=== PATIENT | female | born 1950 | race Caucasian/White ===

== ENCOUNTER → 2017-08-15 | Outpatient (CLI) | payer MEDICARE, OTHER ==
[~2017-08-15] MED LIST: ALEVE PM CAPLE1 EACH PO; ASPIR 8181 MG PO; ATENOLOL-CHLOR1 EACH PO; AUGMENTIN 875875 MG PO; CHLORTHALIDONE25 MG PO; CYCLOBENZAPRINE5 MG PO; DIFLUCAN200 MG PO; FLAGYL500 MG PO; HUMALOG100 UNIT/1 SUBQ; HUMALOG100 UNIT/2 SQ; HYDROCODONE-AP1 EAC6 PO; KEFLEX500 MG PO; LANTUSSOLASTAR SUBQ; LISINOPRIL20 MG PO; LOVAZA1000 MG PO; MACRODANTIN100 MG PO; MAGOX 400400 MG PO; MOBIC15 MG PO; OMEPRAZOLE40 MG PO; PREDNISONE 5 MG5 M1 PO; TENORMIN50 MG PO; TOUJEO SOL300 UNIT/1 SUBQ; ZANAFLEX4 MG PO; ZETIA10 MG PO; ZYLOPRIM300 MG PO
== END ==
LOC: M.RAD 14:48
DX: M51.36 Other intervertebral disc degeneration, lumbar region (principal); M43.17 Spondylolisthesis, lumbosacral region; G89.29 Other chronic pain; I70.0 Atherosclerosis of aorta; Z85.3 Personal history of malignant neoplasm of breast

== ENCOUNTER → 2017-09-23 | Outpatient (CLI) | payer MEDICARE, OTHER | LOC: M.MRI 08:12 | DX: M51.85 Other intervertebral disc disorders, thoracolumbar region (principal); M48.061 Spinal stenosis, lumbar region without neurogenic claudication; M47.896 Other spondylosis, lumbar region; M51.36 Other intervertebral disc degeneration, lumbar region ==

== ENCOUNTER 2018-04-16 12:58 | Emergency (ER) | payer MEDICARE, OTHER ==
[~2018-04-16] VITALS: Ht 160 cm; Wt 95.3 kg
[~2018-04-16 12:58] MED LIST changes: -CHLORTHALIDONE25 MG PO; -MACRODANTIN100 MG PO; -TENORMIN50 MG PO; -ZANAFLEX4 MG PO; -ZETIA10 MG PO
[2018-04-16 14:07] LABS: URINE BILIRUBIN NEGATIVE (Negative); URINE BLOOD NEGATIVE (Negative); URINE CLARITY CLEAR; URINE COLOR YELLOW; URINE GLUCOSE-RANDOM NEGATIVE (Negative); URINE KETONES TRACE (Negative); URINE NITRITE-REFLEX NEGATIVE (Negative); URINE PROTEIN NEGATIVE (Negative); URINE SPECIFIC GRAVITY 1.025 (1.005-1.030)
[2018-04-16 14:08] LABS: URINE LEUKOCYTES-REFLEX 2+ (Negative)
[2018-04-16 14:22] LABS: CASTS None Seen /LPF (None Seen); CRYSTALS None Seen /LPF (None Seen); SQUAMOUS 4-10 Moderate /LPF (0-3); URINE RBC 3-10 Few /HPF (0-2); URINE WBC-REFLEX >25 Many /HPF (0-5)
[2018-04-16 14:27] LABS: ANION GAP 7 mmol/L (7-16); BUN 32 mg/dL (7-18); CALCIUM 9.2 mg/dL (8.5-10.1); CHLORIDE 101 mmol/L (98-107); CO2 31 mmol/L (21-32); CREATININE 0.8 mg/dL (0.6-1.3); GLUCOSE 193 mg/dL (70-99); POTASSIUM 4.3 mmol/L (3.5-5.1); SODIUM 139 mmol/L (136-145)
[2018-04-16 14:29] LABS: HEMATOCRIT 37.1 % (37.0-47.0); HEMOGLOBIN 12.7 gm/dL (12.0-15.0); MCH 28.3 pg (26.0-34.0); MCHC 34.1 g/dL (28.0-37.0); MCV 83.1 fL (80.0-100.0); MPV 9.7 fl. (7.2-11.1); NUCLEATED RBCS 0 /100WBC; PLATELET COUNT* 110 thou/uL (150-400); RBC 4.47 mil/uL (4.20-5.00); RDW-CV 15.7 % (10.5-14.5); WBC 7.9 thou/uL (4.0-11.0)
[2018-04-16 14:38] LABS: ALBUMIN 3.6 g/dL (3.4-5.0); ALKALINE PHOSPHATASE 82 U/L (46-116); NT-PRO BRAIN NAT PEPTIDE 47 pg/mL (<300); SGOT 24 U/L (15-37); SGPT 34 U/L (30-65); TOTAL BILIRUBIN 0.3 mg/dL (<0.1-1.0); TOTAL PROTEIN 7.2 g/dL (6.4-8.2); TROPONIN-I LEVEL <0.06 ng/mL (<0.06)
[2018-04-16 15:33] LABS: ABSOLUTE EOSINOPHILS 0.4 thou/uL (0.0-0.7); ABSOLUTE LYMPHOCYTES 0.8 thou/uL (0.8-5.3); ABSOLUTE MONOCYTES 0.5 thou/uL (0.0-1.2); ABSOLUTE NEUTROPHILS 6.2 thou/uL (1.6-8.1)
[2018-04-16 15:37] LABS: MACROCYTES 1+; POIKILOCYTOSIS Occasional
[2018-04-16 15:46] LABS: LARGE PLATELETS RARE; PLATELET ESTIMATE DECREASED
[2018-04-16 15:47] LABS: CLUMPED PLTS OCCASIONAL
[2018-04-16] MEDS ORDERED: MACRODANTIN100 MG PO (16:01)
[2018-04-16] MEDS ORDERED: ZANAFLEX4 MG PO (16:01)
[2018-04-16 16:32] VITALS: BP 136/47
--- NOTE | 2018-04-17 16:21 | EKG ---
[place] [address] ELECTROCARDIOGRAM REPORT Name: JACINTO MCDANIEL Room: [facility]#: [id number] Admission: 04/16/18 Attend Phys: Discharge: 04/16/18 Date of : 52 Report #: [id number] THIS REPORT FOR: //name// 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 : 1950 Requested By: Tierra Monzon Order Number: [id number] MD: Alejandro Engle Measurements Intervals [place] Rate: 67 P: 8 DC: 213 QRS: -40 QRSD: 111 T: 35 QT: 389 QTc: 411 Interpretive Statements Sinus rhythm Borderline prolonged DC interval Incomplete left bundle branch block Left ventricular hypertrophy Compared to ECG 07/31/2016 16:54:32 Left bundle-branch block now present Electronically Signed On 04-17-2018 16:21:43 CDT by Alejandro Engle [email or web address] <ELECTRONICALLY SIGNED> By: Alejandro Engle MD, [facility] 04/17/18 1621 1426 1426 Alejandro Engle MD, [facility] /EPI
== END 2018-04-16 16:34 | disposition home or self-care (01) ==
LOC: M.ERS 12:58
PROVIDERS: Nurse Practitioner Family
DX: S29.012A Strain of muscle and tendon of back wall of thorax, initial encounter (principal); R07.89 Other chest pain; E86.0 Dehydration; N39.0 Urinary tract infection, site not specified; M19.90 Unspecified osteoarthritis, unspecified site; I10 Essential (primary) hypertension; E11.9 Type 2 diabetes mellitus without complications; M10.9 Gout, unspecified; Z88.1 Allergy status to other antibiotic agents; Z88.8 Allergy status to other drugs, medicaments and biological substances; Z98.890 Other specified postprocedural states; Z87.442 Personal history of urinary calculi; Z90.710 Acquired absence of both cervix and uterus; Z79.4 Long term (current) use of insulin; Z85.3 Personal history of malignant neoplasm of breast; X58.XXXA Exposure to other specified factors, initial encounter; Y93.89 Activity, other specified; Y92.89 Other specified places as the place of occurrence of the external cause; Y99.8 Other external cause status

== ENCOUNTER 2018-06-01 10:38 | Inpatient (IN) | payer MEDICARE, OTHER ==
[~2018-06-01] VITALS: Ht 160 cm; Wt 86.5 kg
[~2018-06-01 10:38] MED LIST changes: +MACRODANTIN100 MG PO; +ZANAFLEX4 MG PO
[2018-06-01 10:50] VITALS: BP 119/55
[2018-06-01 11:14] LABS: HEMATOCRIT 42.3 % (37.0-47.0); HEMOGLOBIN 14.2 gm/dL (12.0-15.0); MCH 28.1 pg (26.0-34.0); MCHC 33.6 g/dL (28.0-37.0); MCV 83.6 fL (80.0-100.0); NUCLEATED RBCS 0 /100WBC; PLATELET COUNT* 130 thou/uL (150-400); RBC 5.06 mil/uL (4.20-5.00); RDW-CV 15.8 % (10.5-14.5); WBC 9.4 thou/uL (4.0-11.0)
[2018-06-01 11:24] LABS: ANION GAP 12 mmol/L (7-16); BUN 34 mg/dL (7-18); CHLORIDE 97 mmol/L (98-107); CO2 22 mmol/L (21-32); CREATININE 1.6 mg/dL (0.6-1.3); GLUCOSE 430 mg/dL (70-99); POTASSIUM 5.1 mmol/L (3.5-5.1); SODIUM 131 mmol/L (136-145)
[2018-06-01 11:35] LABS: ALBUMIN 3.2 g/dL (3.4-5.0); ALKALINE PHOSPHATASE 61 U/L (46-116); APTT 26.5 Seconds (25.0-31.3); INR 1.1; NT-PRO BRAIN NAT PEPTIDE 238 pg/mL (<300); PROTIME 11.1 Seconds (9.20-11.50); SGOT 16 U/L (15-37); SGPT 24 U/L (30-65); TOTAL BILIRUBIN 0.8 mg/dL (<0.1-1.0); TOTAL PROTEIN 7.1 g/dL (6.4-8.2); TROPONIN-I LEVEL <0.06 ng/mL (<0.06)
[2018-06-01 11:43] LABS: ABSOLUTE MONOCYTES 0.1 thou/uL (0.0-1.2); ABSOLUTE NEUTROPHILS 8.3 thou/uL (1.6-8.1); ATYPICAL LYMPHS 1 %
[2018-06-01 11:44] LABS: PLATELET ESTIMATE DECREASED; POLYCHROMASIA 1+; TOXIC GRANULATION 1+
[2018-06-01 13:01] VITALS: BP 120/67
[2018-06-01 13:16] VITALS: BP 98/58
[2018-06-01] MEDS ORDERED: TENORMIN50 MG PO (14:02)
[2018-06-01] MEDS ORDERED: CHLORTHALIDONE25 MG PO (14:03)
[2018-06-01] MEDS ORDERED: ZETIA10 MG PO (14:10)
[2018-06-01 16:00] VITALS: BP 81/62
[2018-06-01 20:00] VITALS: BP 117/50
[2018-06-02] VITALS (12 sets, daily range): BP systolic 79–138; BP diastolic 30–105
[2018-06-02 05:07] LABS: HEMATOCRIT 32.4 % (37.0-47.0); MCH 28.4 pg (26.0-34.0); MCHC 34.4 g/dL (28.0-37.0); MCV 82.6 fL (80.0-100.0); RBC 3.92 mil/uL (4.20-5.00); RDW-CV 15.5 % (10.5-14.5); WBC 5.5 thou/uL (4.0-11.0)
[2018-06-02 05:17] LABS: HEMOGLOBIN 11.1 gm/dL (12.0-15.0)
[2018-06-02 05:48] LABS: ALBUMIN 2.6 g/dL (3.4-5.0); CREATININE 1.1 mg/dL (0.6-1.3); MAGNESIUM 1.4 mg/dL (1.8-2.4); TOTAL BILIRUBIN 0.4 mg/dL (<0.1-1.0); TOTAL PROTEIN 5.3 g/dL (6.4-8.2)
[2018-06-02 05:49] LABS: POTASSIUM 4.1 mmol/L (3.5-5.1)
--- NOTE | 2018-06-02 09:59 | EKG ---
[place] [address] ELECTROCARDIOGRAM REPORT Name: JACINTO MCDANIEL Room: [address] ADM IN .R.#: [id number] Admission: 06/01/18 Attend Phys: Victor Manuel Lyle, Discharge: Date of : 52 Report #: [id number] THIS REPORT FOR: //name// [facility] ED Test Date: 2018-06-01 Test Time: 10:54:05 Pat Name: JACINTO MCDANIEL Department: Room: [facility] Gender: F Pulper: BRITTANY : 1950 Requested By: Imani Raymundo Order Number: [id number] MD: Thierry Lozada Measurements Intervals [place] Rate: 115 P: 35 [place]: 180 QRS: -53 QRSD: 105 T: 80 QT: 323 QTc: 447 Interpretive Statements Sinus tachycardia Consider left atrial enlargement Left anterior fascicular block Abnormal R-wave progression, late transition Borderline ST depression, lateral leads Compared to ECG 04/16/2018 14:26:50 ST (T wave) deviation now present Myocardial infarct finding now present Sinus rhythm no longer present Left ventricular hypertrophy no longer present Electronically Signed On 06-02-2018 9:59:02 CDT by Thierry Lozada [email or web address] <ELECTRONICALLY SIGNED> By: Thierry Lozada MD, FACC 06/02/18 0959 1054 1054 Thierry Lozada MD, [facility] /EPI
[2018-06-02 11:13] LABS: APTT 26.7 Seconds (25.0-31.3); PROTIME 10.7 Seconds (9.20-11.50)
--- NOTE | 2018-06-02 17:03 | 2DMMODE ---
[place] [address] 2 D/M-MODE ECHOCARDIOGRAM Name: JACINTO MCDANIEL Room: [address] IN [facility]#: [id number] Admission: 06/01/18 Attend Phys: Victor Manuel Sanchez Discharge: Date of : 52 Date of Service: 06/02/18 1703 Report #: [id number] THIS REPORT FOR: //name// APPROVED REPORT Study performed: 06/02/2018 14:41:24 EXAM: Comprehensive 2D, Doppler, and color-flow Echocardiogram Patient Location: In-Patient Room #: [facility] Status: routine BSA: 2.04 HR: 74 bpm BP: 104/453 mmHg Rhythm: NSR Other Information Study Quality: Good Indications Abnormal ECG Echo Enhancing Agent Indication: Rule out Shunt Agent(s) / Amount(s) Used: Agitated Saline 10 cc 2D Dimensions IVSd: 12.29 (7-11mm) LVOT Diam: 18.62 (18-24mm) LVDd: 46.79 mm PWd: 11.10 (7-11mm) Ascending Ao: 34.43 (22-36mm) LVDs: 28.23 (25-40mm) Aortic Root: 31.25 mm Volumes Left Atrial Volume (Systole) LA ESV Index: 15.40 mL/m2 Aortic Valve AoV Peak Oleg.: 1.60 m/s AO Peak Gr.: 10.18 mmHg LVOT Max P.37 mmHg AO Mean Gr.: 6.27 mmHg LVOT Mean P.67 mmHg LVOT Max V: 1.16 m/s AO V2 VTI: 29.79 cm LVOT Mean V: 0.75 m/s CRISTHIAN (VTI): 1.99 cm2 LVOT V1 VTI: 21.83 [place] [address] 2 D/M-MODE ECHOCARDIOGRAM Name: JACINTO MCDANIEL Room: [address] IN .R.#: [id number] Admission: 06/01/18 Attend Phys: Victor Manuel Sanchez Discharge: Date of : 52 Date of Service: 06/02/18 1703 Report #: [id number] Mitral Valve E/A Ratio: 0.85 MV Decel. Time: 227.91 ms MV E Max Oleg.: 0.88 m/s MV PHT: 66.09 ms MVA (PHT): 3.33 cm2 TDI E/Lateral E': 11.00 E/Medial E': 11.00 Medial E' Oleg.: 0.08 m/s Lateral E' Oleg.: 0.08 m/s Pulmonary Valve PV Peak Oleg.: 0.97 m/s PV Peak Gr.: 3.78 mmHg Tricuspid Valve RAP Estimate: 5.00 mmHg TR Peak Gr.: 28.40 mmHg RVSP: 33.00 mmHg PA Pressure: 33.00 mmHg Left Ventricle The left ventricle is normal size. There is normal LV segmental wall motion. Moderate concentric left ventricular hypertrophy. Left ventricular systolic function is normal. The left ventricular ejection fraction is within the normal range. LVEF is 60-65%. Grade I - abnormal relaxation pattern. Right Ventricle The right ventricle is normal size. The right ventricular systolic function is normal. Atria Left atrium is mildly dilated. Interatrial septum is intact without evidence of ASD or PFO. The right atrium size is normal. Aortic Valve The aortic valve is normal in structure. No aortic regurgitation is present. There is no aortic valvular stenosis. Mitral Valve The mitral valve is normal in structure. Trace mitral regurgitation. No evidence of mitral valve stenosis. Tricuspid Valve The tricuspid valve is normal in structure. Mild tricuspid regurgitation. [place] [address] 2 D/M-MODE ECHOCARDIOGRAM Name: JACINTO MCDANIEL Room: [address] IN [facility]#: [id number] Admission: 06/01/18 Attend Phys: Victor Manuel Sanchez Discharge: Date of : 52 Date of Service: 06/02/18 1703 Report #: [id number] Pulmonic Valve The pulmonary valve is normal in structure. There is no pulmonic valvular regurgitation. Great Vessels The aortic root is normal in size. IVC is not well visualized. Pericardium There is no pericardial effusion. <Conclusion> LVEF is 60-65%. Moderate concentric left ventricular hypertrophy. There is normal LV segmental wall motion. Left atrium is mildly dilated. There is no aortic valvular stenosis. No aortic regurgitation is present. Trace mitral regurgitation. No evidence of mitral valve stenosis. Mild tricuspid regurgitation. Mild pulmonary hypertension. <ELECTRONICALLY SIGNED> By: Ryland Marrero MD, FACC 06/02/181702 02 02 Ryland Marrero MD, FACC /INF
[2018-06-02 18:17] LABS: URINE BILIRUBIN NEGATIVE (Negative); URINE BLOOD NEGATIVE (Negative); URINE CLARITY CLEAR; URINE COLOR DARK YELLOW; URINE GLUCOSE-RANDOM NEGATIVE (Negative); URINE KETONES NEGATIVE (Negative); URINE LEUKOCYTES TRACE (Negative); URINE NITRITE NEGATIVE (Negative); URINE PROTEIN NEGATIVE (Negative); URINE SPECIFIC GRAVITY >= 1.030 (1.005-1.030); URINE UROBILINOGEN 0.2 E.U./dl (0.2-1.0)
[2018-06-02 18:39] LABS: SQUAMOUS >10 Many /LPF (0-3)
[2018-06-02 18:40] LABS: CRYSTALS None Seen /LPF (None Seen); HYALINE CASTS 4-10 Moderate /LPF (None Seen); MUCUS 0-3 Light strn/LPF (None Seen)
[2018-06-02 18:41] LABS: BACTERIA 1-9 Few /HPF (None Seen); URINE RBC None Seen /HPF (0-2); URINE WBC 6-15 Few /HPF (0-5)
[2018-06-03 04:00] VITALS: BP 120/95
[2018-06-03 05:56] LABS: CHOLESTEROL 144 mg/dL (<200); HDL CHOLESTEROL 30 mg/dL (>40); LDL CHOLESTEROL 71 mg/dL (<100); TC:HDL 4.8 Ratio (Not establshd); TRIGLYCERIDE 215 mg/dL (<150); VLDL 43 mg/dL (<40)
[2018-06-03 06:00] LABS: SERUM ASSESSMENT Clear
[2018-06-03 08:20] VITALS: BP 92/30
[2018-06-03 12:00] VITALS: BP 130/80; BP 94/40
[2018-06-03 16:00] VITALS: BP 133/100
[2018-06-03 20:46] VITALS: BP 102/45
[2018-06-03 21:07] LABS: GLYCOHEMOGLOBIN (HGB A1C) 7.4 % (4.8-5.6)
[2018-06-04] VITALS: BP 99/44
[2018-06-04 04:00] VITALS: BP 104/51
[2018-06-04 08:04] VITALS: BP 126/40
[2018-06-04 11:49] VITALS: BP 117/48
--- NOTE | 2018-06-04 12:35 | CON ---
[address] [address] CONSULTATION Name: VIOLETAJACINTO Room: [address] IN .R.#: [id number] Admission: 06/01/18 Attend Phys: Victor Manuel Lyle, Discharge: Date of : 52 Report #: [id number] THIS REPORT FOR: //name// CC: Victor Manuel Flood DATE OF SERVICE: 06/03/2018 INFECTIOUS DISEASES CONSULTATION ATTENDING PHYSICIAN: Jr Howell DO. REASON FOR EVALUATION: Gastroenteritis complicated by early signs sepsis. HISTORY OF PRESENT ILLNESS: Chart reviewed, patient examined. This is a 68-year-old female with history of breast cancer who developed onset of diarrhea illness latter part of last week. This was complicated by multiple stools per day. She did have accompanying cramping type abdominal pain despite of somatic symptom treatment worsened, became apparent she fell, which she stated was more due to weakness in her legs, was found to be hemodynamically somewhat labile, she was given fluids, mild renal insufficiency and chest x-ray is unrevealing. Stool cultures are pending. She did have a lactic acid peaked at 3.1. She did note some fevers while at home with chills. On questioning, she denies any particular exposure history. She does have diabetes and her blood sugars have been markedly elevated. Empirically started on cefepime, metronidazole. Clinically, she feels much improved over the course of last 24 hours. ALLERGIES: Listed to AZITHROMYCIN and STATINS. CURRENT MEDICATIONS: Include methylprednisolone, cefepime, metronidazole, p.r.n. analgesics, antiemetics, lisinopril, aspirin, atenolol, ezetimibe, tizanidine. 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 SOCIAL HISTORY: Nonsmoker, no ethanol. FAMILY HISTORY: Noncontributory. REVIEW OF SYSTEMS: Denies any significant pulmonary-related complaints. PHYSICAL EXAMINATION: GENERAL: She appears somewhat chronically ill is the acute component, though not overtly toxic. She is alert, cooperative, [place] [address] CONSULTATION Name: JACINTO MCDANIEL Room: [address]#: [id number] Admission: 06/01/18 Attend Phys: Victor Manuel Lyle, Discharge: Date of : 52 Report #: [id number] VITAL SIGNS: Temperature 98.1, pulse 73, respirations 20, blood pressure 92/30. SKIN: Warm, dry, no rashes. HEENT: Unremarkable. NECK: Supple. LUNGS: Generally clear. HEART: Regular. ABDOMEN: Soft. There are no peritoneal signs. GENITOURINARY: Deferred. RECTAL: Deferred. LABORATORY DATA: Sed rate of 60, prealbumin of 13.9. CT of the abdomen and pelvis showed fluid in the colon, possible diarrhea or enteritis. Urinalysis, 6-15 white cells. MRI of the head shows severe chronic small vessel ischemic changes. CT, little shell tribe of [place] showed no evidence of stenosis. Chest x-ray was unremarkable. ASSESSMENT: Gastroenteritis, suspect infectious etiology. We will await results of the stool for enteric pathogens as well as blood culture results. Continue empiric antimicrobials. <ELECTRONICALLY SIGNED> By: Serafin Ibarra MD 06/04/18 1235 0946 [id number] Ibarra MD /nt
--- NOTE | 2018-06-04 15:13 | CON ---
[address] [address] CONSULTATION Name: JACINTO MCDANIEL Room: [address] IN .R.#: [id number] Admission: 06/01/18 Attend Phys: Victor Manuel Lyle, Discharge: Date of : 52 Report #: [id number] THIS REPORT FOR: //name// CC: Victor Manuel Flood DO DATE OF SERVICE: 06/01/2018 HISTORY OF PRESENT ILLNESS: The patient is a 68-year-old white female who I was asked to see in the Emergency Room after she was noted to have an abnormal ECG. The patient denies a previous history of heart disease. She apparently has had no previous cardiac evaluation. She does not exercise on a regular basis. She was doing well until about 3 days ago. She developed loose stools. Yesterday, she started having abdominal cramping and vomiting. She felt weak and had to sit down on the floor. She finally came to the Emergency Room today. She is noted to have an abnormal ECG and I was asked to see her for further evaluation and treatment. She denies any exertional chest tightness, dyspnea on exertion, palpitations, syncope, edema. PAST MEDICAL AND SURGICAL HISTORY: She has had a history of breast cancer with bilateral mastectomy followed by radiation therapy and chemotherapy. She has had cervical spine fusion, tonsillectomy, hypertension, diabetes, hyperlipidemia. MEDICATIONS: Include atenolol, chlorthalidone, lisinopril, insulin. ALLERGIES: SHE COULD NOT TOLERATE STATIN DRUGS IN THE PAST, WHICH MADE HER LEGS WEAK. FAMILY HISTORY: Her brother is Bud, a nurse here at [employer], who has coronary artery disease. SOCIAL HISTORY: She is . She and her live in [place]. 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 No smoking or alcohol abuse. REVIEW OF SYSTEMS: She denied a history of stroke, asthma, peptic ulcer disease, liver disease. She has had kidney stones. No chronic skin condition. She does wear glasses. No psychiatric illness. PHYSICAL EXAMINATION: GENERAL: Revealed a middle-aged female lying in stretcher. She appeared in no acute distress. VITAL SIGNS: Blood pressure 120/60, pulse is 100, temperature is 100.5. HEENT: She is anicteric, conjunctivae pink. Mucous membranes are moist. NECK: Veins do not appear distended. No carotid bruits. [place] [address] CONSULTATION Name: JACINTO MCADNIEL Room: [address]#: [id number] Admission: 06/01/18 Attend Phys: Victor Manuel Lyle, Discharge: Date of : 52 Report #: [id number] CHEST: Clear to auscultation. CARDIAC: Regular rate and rhythm, no murmur. ABDOMEN: Soft. EXTREMITIES: Had no edema. Posterior tibial pulse 2+ bilaterally. SKIN: Cool and dry. NEUROLOGIC: Nonfocal. DIAGNOSTIC DATA: ECG shows sinus tachycardia, left axis, late transition, nonspecific T-wave changes. Workup in the Emergency Room today, she had a chest x-ray done actually last month that shows normal heart size, clear lung olivares. She had lab work today. Sodium 131, potassium 5.1, BUN 34, creatinine 1.6, glucose 430. Liver function studies are normal. Troponin 0.06. BNP 238. White blood cell count 9.4, hemoglobin 14.2. IMPRESSION AND RECOMMENDATIONS: 1. Abnormal ECG. No evidence of acute myocardial infarction, suspect secondary to hypertension. 2. Hypertension. The patient is on a beta nirmal, diuretic and JOHN inhibitor. 3. Diabetes. 4. Hyperlipidemia. The patient cannot tolerate statin drugs. 5. History of breast cancer. 6. Acute kidney injury. <ELECTRONICALLY SIGNED> By: Thierry Lozada MD, FACC 06/04/18 1513 1144 1850Dajojo Lozada MD, FACC /nt
[2018-06-04 16:35] VITALS: BP 107/45
[2018-06-04 20:03] VITALS: BP 138/47
[2018-06-05] VITALS (7 sets, daily range): BP systolic 106–140; BP diastolic 43–56
--- NOTE | 2018-06-06 19:14 | CON ---
[address] [address] CONSULTATION Name: JACINTO MCDANIEL Room: [address] IN M.R.#: [id number] Admission: 06/01/18 Attend Phys: Victor Manuel Lyle, Discharge: 06/05/18 Date of : 52 Report #: [id number] THIS REPORT FOR: //name// CC: Victor Manuel Flood DATE OF SERVICE: 06/02/2018 HISTORY OF PRESENT ILLNESS: This is a 68-year-old female patient who was evaluated by me as a part of stroke protocol. I discussed the patient with the nurses multiple times. I reviewed the patient's records. The history is not completely clear. As I understand from the patient, she woke up this morning and she was having some difficulty with swallowing. She does have some speech difficulty, but according to the patient, some speech difficulty is at her baseline. She indicates she has an inflammatory muscle disease. She does not know the exact diagnosis. 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 That causes her weakness in the lower extremities. That is her baseline. There is some question that some weakness was noticed on the left side. The patient feels back to her baseline, but it is difficult to tell for sure. REVIEW OF SYSTEMS: Indicates that she has a history of scabies. She had a history of inflammatory myopathy, tonsillectomy, ruptured disk repair in 1984, kidney stone, hysterectomy, arthroscopy, bilateral carpal tunnel syndrome, sebaceous cyst of right hip, arthritis, hypertension, urolithiasis, spinal stenosis, diabetes, fibroids, sciatica, gout. She indicated she had MRIs in the past and she was able to tolerate them. She had a history of mastectomy and healed fracture. A 14-point review of system was carried out and this was the patient's relevant 14-point review of system. PAST MEDICAL HISTORY: Negative for any stroke. FAMILY HISTORY: Negative for any early age stroke. SOCIAL HISTORY: She denies the use of alcohol or tobacco. PHYSICAL EXAMINATION: Indicates that the patient is alert and responsive. She is somewhat sleepy. She can be easily awakened. She does not have any dysmorphic features of eyes, ears and face. Her vision and hearing looks adequate. Cranial nerve examination 2-12 looks unremarkable. Strength is diminished in generalized fashion, but not in any particular muscles. Sensations are present. Tone looks symmetrical. No cerebellar sign. I could not look at the patient's fundus. No meningeal sign. No thyroid mass. Her vision and hearing looks adequate. Reflexes are symmetrical. She is moderately [facility] [address] [place] [address] CONSULTATION Name: JACINTO MCDANIEL Hiren Room: [address] IN M.R.#: [id number] Admission: 06/01/18 Attend Phys: Victor Manuel Lyle, Discharge: 06/05/18 Date of : 52 Report #: [id number] built individual. Her pulses are difficult to palpate. Cardiac examination is unremarkable. No respiratory difficulty or rhonchi on either side. Blood pressure is 104/45, it is running low and has gone as much as 80 systolic. The patient has been admitted with GI problems. Pulse is 103, temperature is 97.8. LABORATORY DATA: Indicates a white count of 5.5 and platelet of only 96. She did have a CT scan of the head, which showed no acute changes. IMPRESSION AND PLAN: It is very difficult to form in this patient to see if she had a stroke or something else. Even if she had a stroke, she indicates she woke up with the symptoms. She is also on Lovenox. Because of that, she is not a candidate for any TPA. We will go ahead and do an MRI in this patient and I will go ahead and do an MRA at the same time. That will determine if any other treatment is acutely necessary and what to do for secondary stroke prophylaxis. Thank you very much for this referral and we will follow up the MRI. We also need to increase the blood pressure in the brain to have an adequate perfusion to the brain. Nurses are already contacting Dr. Howell to get some fluid orders. I did ask the nurses to keep her flat when she goes down for an MRI and for a routine. Thank you very much for this referral. We will follow this patient along with you. <ELECTRONICALLY SIGNED> By: Gregorio Conner MD 06/06/18 1914 1153 1507Gregorio Conner MD /nt
== END 2018-06-05 15:10 | disposition home health service (06) | DRG 682 ==
LOC: M.ERS 10:38 → M.TBA-ER 12:00 → M.2W 12:00
PROVIDERS: Internal Medicine; Personal Emergency Response Attendant; ADMIT Family Medicine
DX: N17.0 Acute kidney failure with tubular necrosis (principal); E11.00 Type 2 diabetes mellitus with hyperosmolarity without nonketotic hyperglycemic-hyperosmolar coma (NKHHC); E44.0 Moderate protein-calorie malnutrition; M19.90 Unspecified osteoarthritis, unspecified site; M10.9 Gout, unspecified; E78.5 Hyperlipidemia, unspecified; K52.9 Noninfective gastroenteritis and colitis, unspecified; E11.22 Type 2 diabetes mellitus with diabetic chronic kidney disease; E11.65 Type 2 diabetes mellitus with hyperglycemia; I12.9 Hypertensive chronic kidney disease with stage 1 through stage 4 chronic kidney disease, or unspecified chronic kidney disease; N18.3 Chronic kidney disease, stage 3 (moderate); Z87.442 Personal history of urinary calculi; Z90.710 Acquired absence of both cervix and uterus; Z85.3 Personal history of malignant neoplasm of breast; Z87.81 Personal history of (healed) traumatic fracture; Z90.13 Acquired absence of bilateral breasts and nipples; Z88.1 Allergy status to other antibiotic agents; Z88.8 Allergy status to other drugs, medicaments and biological substances; Z92.21 Personal history of antineoplastic chemotherapy; Z92.3 Personal history of irradiation; Z82.49 Family history of ischemic heart disease and other diseases of the circulatory system; Z79.82 Long term (current) use of aspirin; Z79.899 Other long term (current) drug therapy; Z68.33 Body mass index [BMI] 33.0-33.9, adult

== ENCOUNTER 2018-09-04 21:25 | Emergency (ER) | payer MEDICARE, BC ==
[~2018-09-04] VITALS: Ht 165.1 cm; Wt 98.4 kg
[~2018-09-04 21:25] MED LIST changes: +CHLORTHALIDONE25 MG PO; +TENORMIN50 MG PO; +ZETIA10 MG PO
[2018-09-04] MEDS ORDERED: ZOVIRAX400 MG PO (22:48)
[2018-09-04 22:57] VITALS: BP 119/47
== END 2018-09-04 22:57 | disposition home or self-care (01) ==
LOC: M.ERS 21:25
DX: G51.0 Bell's palsy (principal); I10 Essential (primary) hypertension; M19.90 Unspecified osteoarthritis, unspecified site; M48.00 Spinal stenosis, site unspecified; E11.9 Type 2 diabetes mellitus without complications; M10.9 Gout, unspecified; E78.5 Hyperlipidemia, unspecified; Z88.1 Allergy status to other antibiotic agents; Z88.8 Allergy status to other drugs, medicaments and biological substances; Z90.89 Acquired absence of other organs; Z87.442 Personal history of urinary calculi; Z90.710 Acquired absence of both cervix and uterus; Z85.3 Personal history of malignant neoplasm of breast; Z90.13 Acquired absence of bilateral breasts and nipples; Z79.4 Long term (current) use of insulin

== ENCOUNTER → 2018-12-15 | Outpatient (CLI) | payer MEDICARE, BC ==
[~2018-12-15] MED LIST changes: +ZOVIRAX400 MG PO
== END ==
LOC: M.RAD 11:57
DX: C50.812 Malignant neoplasm of overlapping sites of left female breast (principal); R97.8 Other abnormal tumor markers; M47.814 Spondylosis without myelopathy or radiculopathy, thoracic region; Z88.1 Allergy status to other antibiotic agents

== ENCOUNTER → 2019-09-30 | Outpatient (CLI) | payer MEDICARE, BC ==
[2019-09-30 09:03] LABS: POTASSIUM 4.6 mmol/L (3.5-5.1)
== END ==
LOC: M.LAB 00:16
PROVIDERS: Anesthesiology
DX: E11.9 Type 2 diabetes mellitus without complications (principal); E87.6 Hypokalemia

== ENCOUNTER 2020-01-22 21:05 | Inpatient (IN) | payer MEDICARE, BC ==
[~2020-01-22] VITALS: Ht 160 cm; Wt 96.9 kg
[2020-01-22 21:12] VITALS: BP 154/70
[2020-01-22 21:46] LABS: HEMATOCRIT 38.2 % (37.0-47.0); HEMOGLOBIN 13.1 gm/dL (12.0-15.0); MCH 27.8 pg (26.0-34.0); MCHC 34.4 g/dL (28.0-37.0); MCV 80.9 fL (80.0-100.0); MPV 9.4 fl. (7.2-11.1); RBC 4.72 mil/uL (4.20-5.00); RDW-CV 15.4 % (10.5-14.5); WBC 4.9 thou/uL (4.0-11.0)
[2020-01-22 22:00] LABS: APTT 23.1 Seconds (25.0-31.3); PROTIME 10.4 Seconds (9.20-11.50)
[2020-01-22 22:02] LABS: CALCIUM 9.1 mg/dL (8.5-10.1); CREATININE 1.1 mg/dL (0.6-1.3); POTASSIUM 4.4 mmol/L (3.5-5.1)
[2020-01-22] MEDS ORDERED: CRESTOR5 MG PO (22:06)
[2020-01-22 22:07] LABS: ALBUMIN 3.6 g/dL (3.4-5.0); TOTAL BILIRUBIN 0.8 mg/dL (<0.1-1.0); TOTAL PROTEIN 7.2 g/dL (6.4-8.2)
[2020-01-22] MEDS ORDERED: ARIMIDEX1 MG PO (22:07)
[2020-01-22] MEDS ORDERED: FLEXERIL PO (22:07)
[2020-01-22] MEDS ORDERED: GRALISE300 MG PO (22:08)
[2020-01-22 23:46] LABS: URINE BILIRUBIN NEGATIVE (Negative); URINE BLOOD TRACE (Negative); URINE CLARITY CLEAR; URINE COLOR YELLOW; URINE GLUCOSE-RANDOM 3+ (Negative); URINE KETONES 1+ (Negative); URINE LEUKOCYTES TRACE (Negative); URINE NITRITE POSITIVE (Negative); URINE PROTEIN NEGATIVE (Negative); URINE SPECIFIC GRAVITY 1.015 (1.005-1.030); URINE UROBILINOGEN 0.2 E.U./dl (0.2-1.0)
[2020-01-22 23:56] LABS: BACTERIA >30 Many /HPF (None Seen); CASTS None Seen /LPF (None Seen); CRYSTALS None Seen /LPF (None Seen); MUCUS 4-6 Moderate strn/LPF (None Seen); SQUAMOUS 0-3 Few /LPF (0-3); URINE RBC 3-10 Few /HPF (0-2); URINE WBC >25 Many /HPF (0-5); WBC CLUMPS Few (None Seen)
[2020-01-23 02:03] VITALS: BP 103/46
[2020-01-23 02:45] VITALS: BP 149/62
--- NOTE | 2020-01-23 05:41 | NUR ---
PT ADMITTED TO FLOOR AT 0215. ASSESSMENTS COMPLETED AT BEDSIDE. MEDICATIONS ADMINISTERED PER OCT. C/O CHRONIC PAIN AT A TOLERABLE LEVEL. PT IS A FALL RISK D/T RECENT FALLS. NO OTHER CONCERNS NOTED AT THIS TIME, PT IS CURRENTLY ASLEEP IN BED WITH BED ALARM ON AND CALL LIGHT WITHIN REACH.
[2020-01-23 07:30] VITALS: BP 141/48
--- NOTE | 2020-01-23 09:49 | EKG ---
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 : 1950 Requested By: Philly Jennings Order Number: [id number] MD: Heriberto Garcia Measurements Intervals [place] Rate: 113 P: 55 [place]: 161 QRS: -46 QRSD: 107 T: 66 QT: 325 QTc: 446 Interpretive Statements Sinus tachycardia Incomplete left bundle branch block Probable left ventricular hypertrophy ST elevation, consider inferior injury Compared to ECG 06/01/2018 10:54:05 Left bundle-branch block now present Myocardial infarct finding now present Left anterior fascicular block no longer present ST (T wave) deviation still present Electronically Signed On 01-23-2020 9:48:15 CDT by Heriberto Garcia [email or web address] <ELECTRONICALLY SIGNED> By: Sandy Garcia MD, [facility] 01/23/20947 10 10 Sandy Garcia MD, [facility] /EPI
[2020-01-23 12:02] VITALS: BP 112/58
[2020-01-23 12:45] LABS: CALCIUM 8.4 mg/dL (8.5-10.1); MAGNESIUM 1.4 mg/dL (1.8-2.4); POTASSIUM 3.8 mmol/L (3.5-5.1)
[2020-01-23 17:09] VITALS: BP 113/44
--- NOTE | 2020-01-23 19:44 | NUR ---
RECEVIED REPORT FROM FAUSTINA RN. ASSUMED CARE OF PT AROUND 0730. PT AWAKE, ALERT TO PERSON, PLACE AND SITUATION BUT ALSO CONFUSED AND FORGETFUL. PT MADE M/S STATUS. MEDS PER EMAR. PT COMPLETED MRI THIS SHIFT. UP WITH MODERATE ASSIST TO BEDSIDE COMMODE TO VOID. PT BECAME MORE CONFUSED BY THIS EVENING AND WAS HAVING AUDITORY HALLUCINATIONS. EVENING GABEPENTIN HELD. PT WITH POOR APPETITE. V GO INSULIN PUMP REMOVED AND PLACED ON BEDSIDE TABLE FOR MRI. PT CURRENTLY RESTING IN BED. CALL LIGHT IS WITHIN REACH. HOURLY ROUNDING PERFORMED. FALL PRECAUTIONS IN PLACE.
[2020-01-23 20:20] VITALS: BP 150/56
[2020-01-24] VITALS (16 sets, daily range): BP systolic 92–135; BP diastolic 30–61
[2020-01-24 04:31] LABS: CALCIUM 8.2 mg/dL (8.5-10.1); CREATININE 0.9 mg/dL (0.6-1.3); MAGNESIUM 1.4 mg/dL (1.8-2.4); POTASSIUM 3.7 mmol/L (3.5-5.1)
[2020-01-24 05:38] LABS: GLYCOHEMOGLOBIN (HGB A1C) 11.1 % (4.8-5.6)
--- NOTE | 2020-01-24 06:07 | NUR ---
PATIENT HAS SLEPT WELL THROUGHOUT THE NIGHT. VSS ON RA, ALTHOUGH TEMP WAS ELEVATED AT 101.7 AND TYLENOL WAS GIVEN AND TEMP CAME DOWN TO 98.5. MEDICATIONS GIVEN ORDERED AND PATIENT TAKES WITH PUDDING. PATIENT IS STILL SHOWING SOME CONFUSION WHEN TALKING TO HER. IV IN LEFT FOREARM-SL. FALL PRECAUTIONS IN PLACE AND HOURLY ROUNDS MADE. WILL CONTINUE WITH PLAN OF CARE AND NURSING TO MONITOR.
[2020-01-24 14:04] LABS: BE 0.8 mmol/L (-2 to +3); PCO2 39.6 mmHg (35.0-45.0); PO2 100.8 mmHg (75.0-100.0); pH 7.422 (7.340-7.450)
[2020-01-24 14:29] LABS: HEMATOCRIT 32.4 % (37.0-47.0); MCH 27.7 pg (26.0-34.0); MCHC 34.3 g/dL (28.0-37.0); MCV 80.8 fL (80.0-100.0); MPV 9.1 fl. (7.2-11.1); RBC 4.01 mil/uL (4.20-5.00); RDW-CV 15.6 % (10.5-14.5); WBC 3.3 thou/uL (4.0-11.0)
[2020-01-24 14:31] LABS: HEMOGLOBIN 11.1 gm/dL (12.0-15.0)
[2020-01-24 14:36] LABS: CALCIUM 8.1 mg/dL (8.5-10.1); CREATININE 1.5 mg/dL (0.6-1.3); POTASSIUM 3.5 mmol/L (3.5-5.1)
--- NOTE | 2020-01-24 15:07 | NUR ---
PATIENT OXYGEN STARTED TO DROP AND HEART RATE DIPPED INTO THE 30'S. RAPID RESPONSE ACTIONS WERE TAKEN AND NEW ORDERS WERE OBTAINED. PATIENT IS TRANSFERED TO ICU BED 6. WILL CONTINUE TO MONITOR.
[2020-01-25] VITALS (7 sets, daily range): BP systolic 97–113; BP diastolic 32–45
[2020-01-25 04:44] LABS: HEMATOCRIT 28.3 % (37.0-47.0); HEMOGLOBIN 9.8 gm/dL (12.0-15.0); MCH 27.9 pg (26.0-34.0); MCHC 34.7 g/dL (28.0-37.0); MCV 80.2 fL (80.0-100.0); MPV 9.7 fl. (7.2-11.1); RBC 3.53 mil/uL (4.20-5.00); RDW-CV 15.8 % (10.5-14.5)
[2020-01-25 04:49] LABS: WBC 1.7 thou/uL (4.0-11.0)
[2020-01-25 05:13] LABS: ALBUMIN 2.4 g/dL (3.4-5.0); CALCIUM 6.9 mg/dL (8.5-10.1); CREATININE 1.1 mg/dL (0.6-1.3); MAGNESIUM 1.4 mg/dL (1.8-2.4); POTASSIUM 3.6 mmol/L (3.5-5.1); TOTAL BILIRUBIN 0.6 mg/dL (<0.1-1.0); TOTAL PROTEIN 5.3 g/dL (6.4-8.2)
--- NOTE | 2020-01-25 07:31 | NUR ---
ASSUMED PATIENT CARE AT 1900. ASSESSMENTS COMPLETED CHARTED. CARDIAC MONITORING IN PLACE. FALL PRECAUTIONS IN PLACE FOR PATIENT SAFETY. BED LOCKED AND IN LOWEST POSITION. CLWR.
[2020-01-25 09:06] LABS: HEMATOCRIT 28.3 % (37.0-47.0); HEMOGLOBIN 9.8 gm/dL (12.0-15.0); MCH 27.8 pg (26.0-34.0); MCHC 34.6 g/dL (28.0-37.0); MCV 80.3 fL (80.0-100.0); MPV 9.6 fl. (7.2-11.1); NUCLEATED RBCS 1 /100WBC; RBC 3.52 mil/uL (4.20-5.00); RDW-CV 15.9 % (10.5-14.5)
[2020-01-25 09:11] LABS: PLATELET COUNT* 44 thou/uL (150-400); WBC 1.9 thou/uL (4.0-11.0)
[2020-01-25 09:21] LABS: INR 1.1
[2020-01-25 10:06] LABS: ABSOLUTE EOSINOPHILS 0.1 thou/uL (0.0-0.7); ABSOLUTE LYMPHOCYTES 0.4 thou/uL (0.8-5.3); ABSOLUTE MONOCYTES 0.1 thou/uL (0.0-1.2); ABSOLUTE NEUTROPHILS 1.4 thou/uL (1.6-8.1); MYELOCYTES 4 %; PLATELET ESTIMATE DECREASED
--- NOTE | 2020-01-25 13:20 | NUR ---
ICU rounds: Pt up to commode, working with therapy at this time. Pt transferred down from tele yesterday d/t being radhames. Doing better. Pressures remain a little soft. Tele tomorrow? CM to attempt to assess Pt after finished working with therapies.
--- NOTE | 2020-01-25 14:36 | 2DMMODE ---
[place] [address] 2 D/M-MODE ECHOCARDIOGRAM Name: JACINTO MCDANIEL Room: [address] IN M.R.#: [id number] Admission: 01/23/20 Attend Phys: Dena holcomb Sa Discharge: Date of : 52 Date of Service: 01/25/20 1435 Report #: [id number] THIS REPORT FOR: cc: Meño Flood,Meño Christy,Thierry Jose MD [facility] ~ APPROVED REPORT Study performed: 01/25/2020 09:23:33 EXAM: Comprehensive 2D, Doppler, and color-flow Echocardiogram Patient Location: In-Patient BSA: 1.95 HR: 78 bpm BP: 97/36 mmHg Other Information Study Quality: Fair Technically limited study due to inability to position patient. Indications CVA/TIA Echo Enhancing Agent Indication: Rule out Shunt Agent(s) / Amount(s) Used: Agitated Saline cc 2D Dimensions IVSd: 11.35 (7-11mm) LVOT Diam: 17.85 (18-24mm) LVDd: 46.01 mm PWd: 11.59 (7-11mm) Ascending Ao: 33.83 (22-36mm) LVDs: 34.16 (25-40mm) Aortic Root: 27.24 mm Volumes Left Atrial Volume (Systole) LA ESV Index: 16.70 mL/m2 Aortic Valve AoV Peak Oleg.: 1.35 m/s AO Peak Gr.: 7.27 mmHg LVOT Max P.76 mmHg AO Mean Gr.: 4.47 mmHg LVOT Mean P.27 [place] [address] 2 D/M-MODE ECHOCARDIOGRAM Name: JACINTO MCDANIEL Room: [address] IN ..#: [id number] Admission: 01/23/20 Attend Phys: Dena holcomb Sa Discharge: Date of : 52 Date of Service: 01/25/20 1435 Report #: [id number] LVOT Max V: 0.83 m/s AO V2 VTI: 22.27 cm LVOT Mean V: 0.52 m/s CRISTHIAN (VTI): 1.49 cm2 LVOT V1 VTI: 13.30 cm Mitral Valve E/A Ratio: 1.06 MV Decel. Time: 200.98 ms MV E Max Oleg.: 0.90 m/s MV PHT: 58.28 ms MVA (PHT): 3.77 cm2 TDI E/Lateral E': 10.00 E/Medial E': 10.00 Medial E' Oleg.: 0.09 m/s Lateral E' Oleg.: 0.09 m/s Pulmonary Valve PV Peak Oleg.: 1.26 m/s PV Peak Gr.: 6.35 mmHg Tricuspid Valve RAP Estimate: 5.00 mmHg TR Peak Gr.: 43.56 mmHg RVSP: 48.56 mmHg PA Pressure: 48.56 mmHg Left Ventricle The left ventricle is normal size. There is normal LV segmental wall motion. There is normal left ventricular wall thickness. Left ventricular systolic function is normal. The left ventricular ejection fraction is within the normal range. LVEF is 55-60%. Right Ventricle The right ventricle is normal size. The right ventricular systolic function is normal. Atria The left atrium size is normal. Interatrial septum not well visualized. Injection of bubbles documented no interatrial shunt. The right atrium size is normal. Aortic Valve The Aortic valve is sclerotic. No aortic regurgitation is present. There is no aortic valvular stenosis. Mitral Valve The mitral valve is normal in structure. There is no mitral valve regurgitation noted. No evidence [place] [address] 2 D/M-MODE ECHOCARDIOGRAM Name: VIOLETAJACINTO Maradiaga Room: [address] IN M.R.#: [id number] Admission: 01/23/20 Attend Phys: Dena holcomb Sa Discharge: Date of : 52 Date of Service: 01/25/20 1435 Report #: [id number] Tricuspid Valve The tricuspid valve is normal in structure. Mild tricuspid regurgitation. estimated pa pressure 45 mm Hg Pulmonic Valve The pulmonary valve is normal in structure. There is no pulmonic valvular regurgitation. Great Vessels The aortic root is normal in size. IVC is not well visualized. Pericardium There is no pericardial effusion. <Conclusion> LVEF is 55-60%. Interatrial septum not well visualized. Injection of bubbles documented no interatrial shunt. Mild tricuspid regurgitation. estimated pa pressure 45 mm Hg <ELECTRONICALLY SIGNED> By: Thierry Lozada MD, FACC 01/25/20 1435 1435 1435 Thierry Lozada MD, FACC /INF
--- NOTE | 2020-01-25 19:46 | NUR ---
PATIENT PROGRESSED WELL TOWARDS GOALS TODAY. ABLE TO GET UP TO CHAIR AND GIVE SELF A BATH. WAS INCONTIENT MOST OF SHIFT BUT CLEANED UP. PATIENT MORE ALERT THIS SHIFT FROM YESTERDAY. FEVER SPIKED AGAIN, TYLENOL GIVEN. WEANED OFF O2. SUGARS MORE UNDER CONTROLLED, INSLULIN GIVEN. BED IN LOWEST POSITION, CALL LIGHT IN REACH, CARDIAC MONTIOR IN PLACE. DAUGHTER SPENT HALF THE DAY WITH HER.
[2020-01-25 22:06] LABS: HEMOGLOBIN 9.6 g/dL (11.1-15.9)
[2020-01-26] VITALS (11 sets, daily range): BP systolic 92–159; BP diastolic 43–86
[2020-01-26 06:51] LABS: HEMOGLOBIN 9.7 gm/dL (12.0-15.0); MCH 27.7 pg (26.0-34.0); MCHC 34.7 g/dL (28.0-37.0); MPV 11.7 fl. (7.2-11.1); RBC 3.5 mil/uL (4.20-5.00); RDW-CV 15.9 % (10.5-14.5)
[2020-01-26 06:53] LABS: WBC 1.5 thou/uL (4.0-11.0)
[2020-01-26 06:56] LABS: CALCIUM 7.1 mg/dL (8.5-10.1); CREATININE 0.9 mg/dL (0.6-1.3); MAGNESIUM 1.9 mg/dL (1.8-2.4); POTASSIUM 3.5 mmol/L (3.5-5.1)
--- NOTE | 2020-01-26 14:06 | NUR ---
ICU rounds: Tele status. Febrile, start new IVABX
--- NOTE | 2020-01-26 21:34 | NUR ---
REPORT GIVEN TO KASSIDY LASERIST. PATIENT INFORMED OF ROOM CHANGE AND TRANSPORTED TO ROOM 227.
[2020-01-27] VITALS: BP 92/32
--- NOTE | 2020-01-27 02:56 | NUR ---
PT ALERT ORIENTED. TURN Q 2 HRS. PT INITAL TEMP AFTER ICU TRANSFER 100.5. TYLENOL GIVEN. NEXT TEMP 102. BP 92/32. DR FREED NOTIFIED OF TEMP AND BP. BOLUS OF NS ORDERED. CONTINUE WIITH TYLENOL. TELEMETRY SHOWS SR. ONE EPISOID OF NAUSIA RELIEVED BY ZOFRAN. WCTM
[2020-01-27 04:00] VITALS: BP 111/37
[2020-01-27 05:51] LABS: HEMATOCRIT 26.2 % (37.0-47.0); HEMOGLOBIN 9.2 gm/dL (12.0-15.0); MCHC 35.2 g/dL (28.0-37.0); MCV 79.5 fL (80.0-100.0); MPV 10.2 fl. (7.2-11.1); RBC 3.29 mil/uL (4.20-5.00); RDW-CV 16.1 % (10.5-14.5)
[2020-01-27 06:07] LABS: WBC 1.2 thou/uL (4.0-11.0)
[2020-01-27 06:10] LABS: ALBUMIN 2.2 g/dL (3.4-5.0); CALCIUM 7.2 mg/dL (8.5-10.1); MAGNESIUM 1.9 mg/dL (1.8-2.4); POTASSIUM 3.8 mmol/L (3.5-5.1); TOTAL BILIRUBIN 0.5 mg/dL (<0.1-1.0); TOTAL PROTEIN 4.9 g/dL (6.4-8.2)
--- NOTE | 2020-01-27 08:32 | CON ---
[address] [address] CONSULTATION Name: JACINTO MCDANIEL Room: [place] [address] ADM IN M.R.#: [id number] Admission: 01/23/20 Attend Phys: Dena Barnard Discharge: Date of : 52 Report #: [id number] THIS REPORT FOR: //name// cc: Meño Flood Vincent R. DO ~ THIS REPORT FOR: //name// CC: Dena Lee DATE OF SERVICE: 01/26/2020 INFECTIOUS DISEASE CONSULTATION ATTENDING PHYSICIAN: Dr. Sims. REASON FOR EVALUATION: The patient with known complicated urinary tract infection and persistent fevers, encephalopathy, question specifically about need for lumbar puncture. HISTORY OF PRESENT ILLNESS: Chart reviewed, patient examined. This is a 69-year-old woman with fairly significant medical history, who has known history of breast cancer diagnosed in 2016, has been on some prophylactic therapy since her initial treatment, who apparently slid to the floor, was unable to get up, even with assistance. On the day of admission, she notes she had been feeling progressively weak, which she attributes to her lower extremities, has had some fevers as well, was noted to be encephalopathic, was evaluated and was found to have marked hyperglycemia as well as moderate to marked pyuria and was confirmed to have positive urine culture with Escherichia coli. Blood cultures were sterile in spite she has had persistent fevers, having been on broad-spectrum therapy initially including Zosyn as well as vancomycin, was switched to ceftriaxone with the available susceptibilities. At this point, she is quite lucid. Denies any headache. No stiff neck. No teeth issues or sore throat. She does admit to "chronic sinus." She is on supplemental oxygen per nasal cannula. Denies pulmonary-related complaints. She has not had any change in her overall weight that she is aware of. Generally, her appetite has been good until this short hospitalization. She describes herself as being somewhat unsettled over recent months. Thought processes are being not quite normal for her. She has become progressively more pancytopenic. ALLERGIES: LISTED TO STATINS AND AZITHROMYCIN. CURRENT MEDICATIONS: Include ceftriaxone, cyanocobalamin, enoxaparin, nystatin, gabapentin, cyclobenzaprine, p.r.n. analgesics, antiemetics, meclizine, scopolamine, insulin, anastrozole, ezetimibe, allopurinol, aspirin, meloxicam, pantoprazole, 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 SOCIAL HISTORY: Nonsmoker, no ethanol, no illicit drug use. FAMILY HISTORY: Noncontributory. REVIEW OF SYSTEMS: Otherwise, unremarkable. PHYSICAL EXAMINATION: GENERAL: She is conversant, generally be oriented. She is in [id number] distress. VITAL SIGNS: T-max earlier 102.1, pulse seemingly has a temperature-pulse dissociation. Blood pressure is 97/36, pulse of 78, respirations 10, appears somewhat chronically ill, mildly undernourished. HEENT: Normocephalic. Extraocular muscles intact. Nasal cannula in place. NECK: Supple. There is really no meningismus. LUNGS: Diminished breath sounds. HEART: Regular. I do not appreciate a murmur. ABDOMEN: Distended, mildly firm. No overt peritoneal signs. GENITOURINARY: Deferred. RECTAL: Deferred. LABORATORY DATA: Blood cultures sterile thus far. Most recent electrolytes, sodium 136, potassium 3.5, chloride 104, bicarbonate is 25, anion gap of 7, BUN and creatinine 19 and 0.9, glucose 132, that is down from the 400s consistently on admission. CBC, white count of 1.5, H and H of 9.7 and 28, platelets of 37. Peripheral smear in progress. Lactic acid of 0.7; it was initially at 1.7. Prealbumin of 11.3. CPK of 112. Urine culture with growth of greater than 10 to the fifth Escherichia coli that is susceptible to the extensive panel including beta lactams, aminoglycosides, quinolones, sulfa. Liver functions, borderline elevated, AST of 61, ALT of 64. Albumin of 2.4. Estimated GFR 49. Chest x-ray showed mild perihilar interstitial prominence. MRI of the head showed no acute process. Sed rate of 34. LDH of 231. TSH of 0.548. ASSESSMENT AND PLAN: Febrile illness certainly suggests acute issue with urinary tract infection, cannot exclude a complicating factor. Discussed with Dr. Sims. We will go ahead and check CT of the abdomen and pelvis since it has been upwards of 4 days in spite of being on what appears to be adequate antimicrobial therapy with the pancytopenias, her baseline or with elevation due to infection and now returning to where she is chronically or if this is perhaps an adverse drug effect with bone marrow suppression, it is not entirely clear. We will just see how she does. We will consider bone [place] [address] CONSULTATION Name: JACINTO MCDANIEL Room: [place] [address] ADM IN M.R.#: [id number] Admission: 01/23/20 Attend Phys: Dena holcomb Arnold Discharge: Date of : 52 Report #: [id number] she is "loopy" for the past several months, certainly cannot exclude an occult process and may well benefit from diagnostic approach including lumbar puncture. There is some degree of increased risk at this point given the low platelets and potential coagulopathy. We will hold off for the moment. Clearly, she is not encephalopathic then exhibit signs of meningoencephalitis. Continue the ceftriaxone for the moment. We will see how she does clinically. <ELECTRONICALLY SIGNED> By: Serafin Ibarra MD 01/27/20 0832 1154 [id number] Ibarra MD /nt
[2020-01-27 09:39] VITALS: BP 118/48
[2020-01-27 12:31] VITALS: BP 94/69
--- NOTE | 2020-01-27 14:31 | NUR ---
PT HAS BEEN IN BED T/O DAY LIMITED CONVERSATION, BUT ALERT AND ORIENTED FOR THE MOST PART JUST VERY FORGETFUL U/S OF ABD DONE THIS AM AND NOW WAITING ON MRI WITH CONTRAST FOR ABD D/T RENAL CYSTS PT DENIES ANY METAL OF ANY SORT IN/ON BODY RIJ CONTINUES PT IS INCONTINENT OF URINE NPO ALL DAY UNTIL AFTER MRI DTR IS SUPPOSED TO COME VISIT PT C/O SOME GENERALIZED PAIN AT TIMES TEMP ELEVATED AND TYLENOL GIVEN WITH LITTLE RELIEF CALL LIGHT IN REACH WILL CONT TO MONITOR
[2020-01-27 20:00] VITALS: BP 108/40
[2020-01-28] VITALS: BP 125/46
[2020-01-28 08:14] VITALS: BP 124/42
[2020-01-28 10:59] LABS: HEMATOCRIT 26.9 % (37.0-47.0); HEMOGLOBIN 9.3 gm/dL (12.0-15.0); MCH 27.5 pg (26.0-34.0); MCHC 34.4 g/dL (28.0-37.0); MPV 9.9 fl. (7.2-11.1); NUCLEATED RBCS 0 /100WBC; PLATELET COUNT* 50 thou/uL (150-400); RBC 3.37 mil/uL (4.20-5.00); RDW-CV 16.1 % (10.5-14.5); WBC 2.7 thou/uL (4.0-11.0)
[2020-01-28 11:39] LABS: ABSOLUTE LYMPHOCYTES 0.8 thou/uL (0.8-5.3); ABSOLUTE MONOCYTES 0.2 thou/uL (0.0-1.2); ABSOLUTE NEUTROPHILS 1.6 thou/uL (1.6-8.1); ATYPICAL LYMPHS 1 %
[2020-01-28 11:41] LABS: HYPOCHROMASIA 2+; PLATELET ESTIMATE DECREASED
[2020-01-28 11:43] LABS: MICROCYTES Occasional
[2020-01-28 12:00] VITALS: BP 101/34
--- NOTE | 2020-01-28 12:07 | NUR ---
PT IN BED T/O MORNING ALERT AND ORIENTED BUT FORGETFUL AND CONFUSION NOTED AT TIMES RIJ CONTINUES FLUSHES AND DRAWS PT C/O PAIN TO BILAT LEGS AND TYLENOL GIVEN WITH RELIEF CATRACHO AREA WASHED AND NYSTATIN POWDER APPLIED TO FOLDS PT IS INCONTINENT OF URINE SOMETIMES KNOWS WHEN SHE NEEDS TO GO NO BM YET PT STATES IT HAS BEEN A FEW DAYS PT WITH DECREASED APPETITE ASSIST X1-2 UP TO CHAIR SR ON THE MONITOR IN THE 80S TO 90S PVCS NOTED AT TIME TEMP 99.8 ORAL THIS AM CALL LIGHT IN REACH
[2020-01-28 15:49] VITALS: BP 105/45
--- NOTE | 2020-01-28 17:00 | NUR ---
PT.SITTING UP IN BED. WAS ALERT AND ORIENTED. HOPES TO GO HOME SOON. THERAPY NEEDS TO SEE TOMORROW. PT.SAID THEY WON'T LET HER UP BY SELF. TOLD HER IT WAS HOSPITAL PROTOCOL. SHE SAID SHE DIDNT WANT HOME HEALTH AT DISCHARGE. CM TO BE AVAILABLE IF NEEDED.
[2020-01-28 20:00] VITALS: BP 150/59
[2020-01-29] VITALS: BP 107/44
[2020-01-29 04:00] VITALS: BP 112/45
--- NOTE | 2020-01-29 05:28 | NUR ---
ASSESSMENTS COMPLETED AT BEDSIDE, PLEASE SEE CHARTING FOR DETAILS. MEDICATIONS ADMINISTERED PER MAR. HOURLY ROUNDING COMPLETED FOR SAFETY. CURRENTLY RESTING IN BED WITH CALL LIGHT WITHIN REACH. ALL CURRENT NEEDS HAVE BEEN MET.
[2020-01-29 05:41] LABS: HEMATOCRIT 25.8 % (37.0-47.0); MCH 27.8 pg (26.0-34.0); MCV 79.5 fL (80.0-100.0); MPV 9.7 fl. (7.2-11.1); RBC 3.25 mil/uL (4.20-5.00); WBC 3.7 thou/uL (4.0-11.0)
[2020-01-29 05:52] LABS: ALBUMIN 2.1 g/dL (3.4-5.0); CALCIUM 7.9 mg/dL (8.5-10.1); CREATININE 0.7 mg/dL (0.6-1.3); MAGNESIUM 1.6 mg/dL (1.8-2.4); POTASSIUM 3.3 mmol/L (3.5-5.1); TOTAL BILIRUBIN 0.3 mg/dL (<0.1-1.0); TOTAL PROTEIN 5.2 g/dL (6.4-8.2)
[2020-01-29 08:00] VITALS: BP 118/52
--- NOTE | 2020-01-29 11:25 | NUR ---
cm f/u w/pt to touchbase and ask if pt wants HH. pt declines HH. pt states, my and I have family in the area so we are okay. pt stated she discussed w/the doctor today, possibly d/c'g tomorrow.
[2020-01-29 11:44] LABS: URINE BILIRUBIN NEGATIVE (Negative); URINE BLOOD NEGATIVE (Negative); URINE CLARITY CLEAR; URINE COLOR YELLOW; URINE GLUCOSE-RANDOM TRACE (Negative); URINE KETONES TRACE (Negative); URINE LEUKOCYTES-REFLEX NEGATIVE (Negative); URINE NITRITE-REFLEX NEGATIVE (Negative); URINE PROTEIN NEGATIVE (Negative); URINE UROBILINOGEN 0.2 E.U./dl (0.2-1.0)
--- NOTE | 2020-01-29 11:52 | NUR ---
Nutrition: Pt admitted with fall [employer]. Assessed for low BMI. Wt of 94# is in error, should be 94kg. Likely discharge tomorrow. Defer further assessment at this time.
[2020-01-29 13:22] VITALS: BP 120/55
--- NOTE | 2020-01-29 15:20 | NUR ---
ASSUMED CARE OF PATIENT THIS AM AT 0730. PATIENT IS ALERT AND ORIENTED X 4. SHE DENIES PAIN AND DISCOMFORT. PATIENT ASSISTED UP TO THE [facility] FOR URINE AND BM THIS AM. HER APPETITE IS VERY POOR. STATES FOOD SMELL MAKES HER NAUSEATED BUT SHE REFUSES TO TAKE ANTINAUSEA MEDICATION. TELE SHOWS NSR. URINE SPECIMEN SENT TO LAB THIS AM. PATIENT HAS WORKED WITH PT AND OT TODAY. SHE IS BACK IN BED AT THIS TIME. PATIENT IS LOOKING FORWARD TO DISCHARGING SOON. NO FALLS OR INJURY. ELECTROLYTE REPLACEMENT GIVEN.
[2020-01-29 17:39] VITALS: BP 120/54
[2020-01-29 18:23] LABS: MAGNESIUM 1.7 mg/dL (1.8-2.4); POTASSIUM 3.8 mmol/L (3.5-5.1)
[2020-01-29 20:00] VITALS: BP 115/54
[2020-01-30] VITALS: BP 113/40
[2020-01-30 04:00] VITALS: BP 146/46
[2020-01-30 05:47] LABS: HEMATOCRIT 25.3 % (37.0-47.0); HEMOGLOBIN 8.8 gm/dL (12.0-15.0); MCH 27.7 pg (26.0-34.0); MCHC 34.8 g/dL (28.0-37.0); MCV 79.6 fL (80.0-100.0); MPV 9.2 fl. (7.2-11.1); RBC 3.17 mil/uL (4.20-5.00); RDW-CV 15.9 % (10.5-14.5); WBC 5.2 thou/uL (4.0-11.0)
[2020-01-30 06:43] LABS: CALCIUM 7.9 mg/dL (8.5-10.1); CREATININE 0.7 mg/dL (0.6-1.3); POTASSIUM 3.6 mmol/L (3.5-5.1); TOTAL BILIRUBIN 0.4 mg/dL (<0.1-1.0); TOTAL PROTEIN 5.1 g/dL (6.4-8.2)
[2020-01-30 08:15] VITALS: BP 123/47
[2020-01-30] MEDS ORDERED: CEFDINIR300 MG PO (09:28)
[2020-01-30] MEDS ORDERED: FLUCONAZOLE 10100 MG PO (09:28)
[2020-01-30 12:00] VITALS: BP 127/46
[2020-01-30 13:27] VITALS: BP 127/46
--- NOTE | 2020-01-31 11:45 | CON ---
[address] [address] CONSULTATION Name: JACINTO MCDANIEL Room: [address] IN M.[place].#: [id number] Admission: 01/23/20 Attend Phys: Dena Barnard Discharge: 01/30/20 Date of : 52 Report #: [id number] THIS REPORT FOR: //name// cc: Meño Flood Vincent R. DO THIS REPORT FOR: //name// CC: Dena Lee DATE OF SERVICE: 01/27/2020 REASONS FOR CONSULTATION: Pancytopenia and breast cancer. HISTORY OF PRESENT ILLNESS: The patient is a pleasant 69-year-old woman who is admitted to the hospital with UTI and confusion. She is on antibiotics. She had normal white cells on admission, but gradually her white count declined. She developed thrombocytopenia as well. Hematology consult is requested. She is somewhat confused, still febrile. She does not have complaints of back pain. Denies cough or shortness of breath. PAST MEDICAL HISTORY: Significant for diabetes mellitus and breast cancer. She does not have any signs of recurrence of disease. Obesity. MEDICATIONS: She is on Arimidex. FAMILY HISTORY: Noncontributory. REVIEW OF SYSTEMS: CONSTITUTIONAL: No recent weight loss. She is not on any new medications as an outpatient. She denies nausea, vomiting, or diarrhea. Denies abdominal pain. PHYSICAL EXAMINATION: GENERAL: Reveals mildly overweight woman, somewhat confused, but she is organized and been able to give me some history. VITAL SIGNS: Blood pressure 100/69, heart rate is 98, temperature 101.3, and respirations 12. HEENT: No thrush. NECK: Supple. HEART: Normal S1, S2. LUNGS: Clear. ABDOMEN: Obese. EXTREMITIES: No edema. LABORATORY DATA: White count 1.2, hemoglobin 9.2, and platelets 30. On admission, white count 4.9, hemoglobin 13.1, [place] 88[place] [address] CONSULTATION Name: VIOLETAJACINTO Room: [address] IN ..#: [id number] Admission: 01/23/20 Attend Phys: Dena holcomb [place] Discharge: 01/30/20 Date of : 52 Report #: [id number] ASSESSMENT AND PLAN: Pancytopenia. I ordered an abdominal ultrasound yesterday it shows fatty liver and splenomegaly. It is not sure how much splenomegaly plays a role in pancytopenia, most likely pancytopenia is secondary to sepsis, which is causing her splenomegaly as well. I do not think that she has a breast cancer recurrence at this point. I recommend to simply follow CBC at this point, if necessary, we can transfuse platelets. We can give Neupogen if her absolute neutrophil count drops below 0.5. I am planning to check B12, folate, and ferritin. If her white if her pancytopenia does not resolve and pursues, I will consider bone marrow biopsy as an outpatient. History of breast cancer, no evidence of disease. Continue Arimidex. UTI. Defer treatment to Dr. Portillo. Thank you very much for allowing me to participate in the care of this patient. <ELECTRONICALLY SIGNED> By: Ashvin Alves MD 01/31/20 1145 [id number] [id number] Alves MD /nt
--- NOTE | 2020-02-03 12:39 | EEG ---
[address] [address] EEG STUDY REPORT Name: JACINTO MCDANIEL Room: [address] IN M.R.#: [id number] Admission: 01/23/20 Attend Phys: Dena Barnard Discharge: 01/30/20 Date of : 52 Report #: [id number] THIS REPORT FOR: //name// CC: Dena Lee This patient is being evaluated for altered mental status. EEG was done by placing the electrode by standard 10-20 system of electrode placement. Both referential and sequential montages were used for recording. Background activity in this patient's EEG is about 7-8 Hz and 20 microvolt. The patient became drowsy that is associated with bilateral slowing. Photic stimulation is unremarkable. Throughout the record, no active epileptiform activity was noticed. IMPRESSION: This is an abnormal EEG because it is disorganized and poorly formed. That is a nonspecific abnormality which can occur with encephalopathy, effect of psychotropic medication, dementia, etc. Clinical correlation is recommended. <ELECTRONICALLY SIGNED> By: Gregorio Perez MD 02/03/20 1239 1514 [id number] Perez MD /nt
== END 2020-01-30 14:12 | disposition home or self-care (01) | DRG 871 ==
LOC: M.ERS 21:05 → M.ICU 01-23 01:18 → M.2W 01-23 01:18 → M.TBA-ER 01-23 01:18 → M.ERS 01-23 02:03 → M.2W 01-23 02:10 → M.ICU 01-24 14:22 → M.2W 01-26 21:45
PROVIDERS: Emergency Medicine; Internal Medicine; Internal Medicine Hematology & Oncology; Psychiatry & Neurology Neurology; Specialist; ADMIT Family Medicine; ATTEND Family Medicine
PROC: 05HM33Z Insertion of Infusion Device into Right Internal Jugular Vein, Percutaneous Approach (ICD-10-PCS; principal; 2020-01-24)
DX: A41.51 Sepsis due to Escherichia coli [E. coli] (principal); R65.21 Severe sepsis with septic shock; G92 Toxic encephalopathy; D61.818 Other pancytopenia; M33.20 Polymyositis, organ involvement unspecified; N30.91 Cystitis, unspecified with hematuria; N28.9 Disorder of kidney and ureter, unspecified; T50.995A Adverse effect of other drugs, medicaments and biological substances, initial encounter; F19.90 Other psychoactive substance use, unspecified, uncomplicated; Y92.89 Other specified places as the place of occurrence of the external cause; E66.9 Obesity, unspecified; Z68.37 Body mass index [BMI] 37.0-37.9, adult; E11.40 Type 2 diabetes mellitus with diabetic neuropathy, unspecified; M10.9 Gout, unspecified; M19.90 Unspecified osteoarthritis, unspecified site; I10 Essential (primary) hypertension; K76.0 Fatty (change of) liver, not elsewhere classified; R16.1 Splenomegaly, not elsewhere classified; E11.65 Type 2 diabetes mellitus with hyperglycemia; G70.9 Myoneural disorder, unspecified; D75.9 Disease of blood and blood-forming organs, unspecified; D72.819 Decreased white blood cell count, unspecified; D69.6 Thrombocytopenia, unspecified; E53.8 Deficiency of other specified B group vitamins; I95.9 Hypotension, unspecified; B96.20 Unspecified Escherichia coli [E. coli] as the cause of diseases classified elsewhere; Z87.442 Personal history of urinary calculi; Z90.710 Acquired absence of both cervix and uterus; Z85.3 Personal history of malignant neoplasm of breast; Z90.13 Acquired absence of bilateral breasts and nipples; Z79.82 Long term (current) use of aspirin; Z79.4 Long term (current) use of insulin; Z79.899 Other long term (current) drug therapy; Z88.1 Allergy status to other antibiotic agents; Z88.8 Allergy status to other drugs, medicaments and biological substances

== ENCOUNTER → 2020-06-09 | Outpatient (CLI) | payer MEDICARE, OTHER ==
[~2020-06-09] MED LIST changes: +ARIMIDEX1 MG PO; +CEFDINIR300 MG PO; +CRESTOR5 MG PO; +FLEXERIL PO; +FLUCONAZOLE 10100 MG PO; +GRALISE300 MG PO
== END ==
LOC: M.ULTRA 10:29
PROVIDERS: ATTEND Family Medicine
DX: N28.1 Cyst of kidney, acquired (principal); N28.89 Other specified disorders of kidney and ureter

== ENCOUNTER 2021-06-11 15:09 | Emergency (ER) | payer MEDICARE, OTHER ==
[~2021-06-11] VITALS: Ht 160 cm; Wt 81.7 kg
[2021-06-11] MEDS ORDERED: RAYOS5 MG PO (15:27)
[2021-06-11] MEDS ORDERED: VITAMIN D (15:29)
[2021-06-11] MEDS ORDERED: FEMARA2.5 MG PO (15:32)
[2021-06-11 17:11] VITALS: BP 131/97
== END 2021-06-11 17:12 | disposition home or self-care (01) ==
LOC: M.ERS 15:09
DX: S16.1XXA Strain of muscle, fascia and tendon at neck level, initial encounter (principal); S00.03XA Contusion of scalp, initial encounter; M79.601 Pain in right arm; E11.9 Type 2 diabetes mellitus without complications; M19.90 Unspecified osteoarthritis, unspecified site; I10 Essential (primary) hypertension; Z90.89 Acquired absence of other organs; Z87.442 Personal history of urinary calculi; Z90.711 Acquired absence of uterus with remaining cervical stump; Z87.42 Personal history of other diseases of the female genital tract; Z85.3 Personal history of malignant neoplasm of breast; Z87.898 Personal history of other specified conditions; Z79.899 Other long term (current) drug therapy; Z79.4 Long term (current) use of insulin; Z88.1 Allergy status to other antibiotic agents; Z88.8 Allergy status to other drugs, medicaments and biological substances; W19.XXXA Unspecified fall, initial encounter; Y93.89 Activity, other specified; Y92.89 Other specified places as the place of occurrence of the external cause; Y99.8 Other external cause status

== ENCOUNTER → 2021-07-21 | Outpatient (CLI) | payer MEDICARE, OTHER ==
[~2021-07-21] MED LIST changes: +FEMARA2.5 MG PO; +RAYOS5 MG PO; +VITAMIN D
== END ==
LOC: M.MRI 07-14 11:30
PROVIDERS: ATTEND Family Medicine
DX: M51.36 Other intervertebral disc degeneration, lumbar region (principal); M48.061 Spinal stenosis, lumbar region without neurogenic claudication; M43.16 Spondylolisthesis, lumbar region; M47.817 Spondylosis without myelopathy or radiculopathy, lumbosacral region; M48.07 Spinal stenosis, lumbosacral region; M25.78 Osteophyte, vertebrae; M46.06 Spinal enthesopathy, lumbar region; W19.XXXD Unspecified fall, subsequent encounter